=== PATIENT | female | born 1955 ===

== ENCOUNTER 2017-08-17 06:24 | Day surgery (SDC) | payer OTHER ==
[2017-08-17 06:55] VITALS: BMI 25.0
[2017-08-17] MEDS ORDERED: Lactated Ringer's 1,000 ML IV ONE (08:20)
[2017-08-17] MEDS ORDERED: Propofol 10 mg/ml Inj (20 ML) ONE (08:22)
--- NOTE | 2017-08-17 08:22 | CP.SDSHP ---
Same Day Surgery H & P - History Proposed Procedure: COLONSCOPY Pre-Op Diagnosis: SEE NOTES - Previous Medical/Surgical History Cardiac: Hypertension Endocrine/Metabolic: Diabetes, Other Misc: Other Pain: 4.Moderate Pain - Allergies Allergies: Allergies No Known Allergies Allergy (Verified 06/23/16 14:54) - Physical Exam General Appearance: N Vital Signs: Vital Signs 08/17/17 07:02 Temperature 97.8 F Pulse Rate 70 Respiratory 16 Rate Blood Pressure 125/59 L O2 Sat by Pulse 99 Oximetry Mental Status: Alert & Oriented x3 Neuro: WNL Heart: Other Lungs: WNL GI: Other - {Optional Preform as Required} Breast: WNL Abdomen: Other Rectal: Other Integument: WNL : WNL Ortho: Other ENT: WNL - Impression Pt. Evaluated Today:Candidate for Anesthesia & Procedure: Yes - Date & Time Time: 08:22 Short Stay Discharge - Short Stay Discharge Admitting Diagnosis/Reason for Visit: RECTAL BLEEDING Disposition: HOME/ ROUTINE
[2017-08-17] MEDS ORDERED: Belladonna-Phenobarbital PO ONE (09:00)
[2017-08-17 09:05] VITALS: TEMP 97
[2017-08-17 09:54] VITALS: BP 108/58; PULSE 54; RESP 17; O2SAT 98
== END 2017-08-17 09:40 | disposition home or self-care (01) ==
LOC: C.ENDO 06:24
PROVIDERS: ATTEND Specialist
DX: K63.89 Other specified diseases of intestine (principal); K52.9 Noninfective gastroenteritis and colitis, unspecified; K64.8 Other hemorrhoids; K57.30 Diverticulosis of large intestine without perforation or abscess without bleeding; K62.5 Hemorrhage of anus and rectum; R10.84 Generalized abdominal pain; R19.4 Change in bowel habit; E11.9 Type 2 diabetes mellitus without complications

== ENCOUNTER 2018-09-13 16:07 | Emergency (ER) | payer OTHER ==
[2018-09-13 16:13] VITALS: BMI 23.8
--- NOTE | 2018-09-13 16:56 | C.PDOC ---
History Of Present Illness 63 y/o female with history of HTN presents to ED with c/o left lower abdominal pain associated with constipation for 2 months and high blood pressure. Patient states she is compliant with HTN medication and still blood pressure is high when checked, states PMD is aware and changed medication 3 weeks ago with no improvement. Patient denies headache, nausea, vomiting, diarrhea, fever, chills, chest pain or any other complaints at this time. PMD: Dr. Paula <Armani Rivera - Last Filed: 09/13/18 18:58> History Per: Patient History/Exam Limitations: no limitations Onset/Duration Of Symptoms: Days Current Symptoms Are (Timing): Still Present <Armani Rivera - Last Filed: 09/13/18 18:58> <Samuel Baum - Last Filed: 09/13/18 20:00> Time Seen by Provider: 09/13/18 16:55 Chief Complaint (Nursing): High Blood Pressure Past Medical History Reviewed: Historical Data, Nursing Documentation, Vital Signs Vital Signs: Last Vital Signs Temp 98.9 F 09/13/18 16:13 Pulse 56 L 09/13/18 16:13 Resp 16 09/13/18 16:13 BP 154/84 H 09/13/18 16:13 Pulse Ox 99 09/13/18 16:13 - Medical History PMH: HTN, Hypercholesterolemia Surgical History: No Surg Hx Family History: States: No Known Family Hx - Social History Hx Tobacco Use: No Hx Alcohol Use: No Hx Substance Use: No - Immunization History Hx Tetanus Toxoid Vaccination: No Hx Influenza Vaccination: Yes (08/2018) Hx Pneumococcal Vaccination: No <Armani Rivera - Last Filed: 09/13/18 18:58> Vital Signs: Last Vital Signs Temp 98.9 F 09/13/18 16:13 Pulse 56 L 09/13/18 16:13 Resp 16 09/13/18 16:13 BP 154/84 H 09/13/18 16:13 Pulse Ox 99 09/13/18 19:00 <Samuel Baum - Last Filed: 09/13/18 20:00> Review Of Systems Constitutional: Negative for: Fever, Chills Gastrointestinal: Positive for: Abdominal Pain, Constipation. Negative for: Nausea, Vomiting, Diarrhea Musculoskeletal: Negative for: Back Pain Skin: Negative for: Rash Neurological: Negative for: Headache <NicoleArmani Last Filed: 09/13/18 18:58> Physical Exam - Physical Exam Appears: Non-toxic, No Acute Distress Skin: Warm, Dry, No Rash Head: Atraumatic, Normacephalic Eye(s): bilateral: Normal Inspection Oral Mucosa: Moist Neck: Normal ROM, Supple Chest: Symmetrical, No Deformity, No Tenderness, No Ecchymosis Cardiovascular: Rhythm Regular Respiratory: Normal Breath Sounds, No Rales, No Rhonchi, No Wheezing Gastrointestinal/Abdominal: Soft, Tenderness (LLQ), No Guarding, No Rebound Back: Normal Inspection, No CVA Tenderness Extremity: Normal ROM, No Pedal Edema, Capillary Refill (<2 seconds) Pulses: Left Dorsalis Pedis: Normal, Right Dorsalis Pedis: Normal Neurological/Psych: Oriented x3, Normal Speech, Normal Cognition, Normal Cranial Nerves, No Cerebellar Signs, Normal Motor, Normal Sensation Other Neurological Findings: No Facial Palsy Extremity: Right: No Drift, Left: No Drift, Upper: No Drift, Lower: No Drift <NicoleArmani Filed: 09/13/18 18:58> ED Course And Treatment - Laboratory Results Result Diagrams: 09/13/18 18:17 09/13/18 18:17 O2 Sat by Pulse Oximetry: 99 (RA) Pulse Ox Interpretation: Normal <NicoleArmani Guzman Filed: 09/13/18 18:58> - Laboratory Results Result Diagrams: 09/13/18 18:17 09/13/18 18:17 <Samuel Baum E - Last Filed: 09/13/18 20:00> Medical Decision Making Medical Decision Makin yr old female w/ hx of HTN p/w LLQ abdominal pain x1 mo and HTN to 1810 this AM without other symptoms. 2mo of abd pain, without recent abx diarrhea or constipation. No headache. No trauma or fall. No vaginal d/c or urinary c omplaints. Non HTN here in ED. Plan: CT abd/pelvis, UA, Blood work ordered. [address] abd pelvis signed out to Dr. Baum Pending CT ABD pelvis <Armani Rivera Last Filed: 09/13/18 18:58> Medical Decision Making: CT abd large stool chronic constipation <Samuel Baum - Last Filed: 09/13/18 20:00> Disposition <Armani Rivera - Last Filed: 09/13/18 18:58> Doctor Will See Patient In The: Office Counseled Patient/Family Regarding: Studies Performed, Diagnosis - Disposition Disposition Time: 19:59 <Samuel Baum - Last Filed: 09/13/18 20:00> - Disposition Disposition: HOME/ ROUTINE Condition: GOOD Forms: [facility] ([place]) - Clinical Impression Clinical Impression: Generalized colicky abdominal pain - Scribe Statement The provider has reviewed the documentation as recorded by the Scribarnulfo Sanderson All medical record entries made by the Manishaibe were at my direction and personal ly dictated by me. I have reviewed the chart and agree that the record accurately reflects my personal performance of the history, physical exam, medical decision making, and the department course for this patient. I have also personally directed, reviewed, and agree with the discharge instructions and disposition. <Armani Rivera - Last Filed: 09/13/18 18:58>
[2018-09-13 18:20] LABS: BASO % 0.4 % (0.0-2.0); EOS # 0.1 K/uL (0.0-0.7); EOS % 2.3 % (0.0-4.0); HEMOGLOBIN 11.8 g/dL (11.0-16.0); LYMPH # 1.4 K/uL (1.0-4.3); LYMPH % 26.6 % (20.0-40.0); MEAN CELL VOLUME 91.5 fL (81.0-99.0); MEAN CORPUSCULAR HEMOGLOBIN 30.4 pg (27.0-31.0); MEAN CORPUSCULAR HGB CONC 33.3 g/dL (33.0-37.0); MEAN PLATELET VOLUME 8.6 fL (7.2-11.7); MONO # 0.6 K/uL (0.0-0.8); MONO % 12.2 % (0.0-10.0); NEUT # 3.1 K/uL (1.8-7.0); NEUT % 58.5 % (50.0-75.0); NRBC % 0.1 % (0.0-2.0); RBC 3.88 Mil/uL (3.80-5.20); RED CELL DISTRIBUTION WIDTH 14.7 % (11.5-14.5); WHITE BLOOD COUNT 5.2 K/uL (4.8-10.8)
[2018-09-13 18:32] LABS: ALB/GLOB RATIO 1.5 (1.0-2.1); ALBUMIN 4.3 g/dL (3.5-5.0); ALT/SGPT 30 U/L (9-52); AST/SGOT 25 U/L (14-36); BLOOD UREA NITROGEN 16 mg/dL (7-17); CALCIUM 9.5 mg/dl (8.6-10.4); GFR NON-AFRICAN AMERICAN > 60; LIPASE 194 U/L (23-300)
[2018-09-13 18:40] LABS: SQUAMOUS EPITHIAL 1 /hpf (0-5); URINE BACTERIA FEW (<OCC); URINE BILIRUBIN NEGATIVE (NEGATIVE); URINE BLOOD 1+ (NEGATIVE); URINE CLARITY Clear (Clear); URINE COLOR Straw (YELLOW); URINE GLUCOSE (UA) NORMAL (Normal); URINE LEUKOCYTE ESTERASE TRACE Leu/uL (Negative); URINE PROTEIN NEGATIVE (NEGATIVE); URINE UROBILINOGEN NORMAL mg/dL (0.2-1.0)
[2018-09-13] MEDS ORDERED: Iohexol 300 100 ML IJ ONE (18:55)
[2018-09-13 20:21] VITALS: BP 170/66; PULSE 55; RESP 20; TEMP 98; O2SAT 98
--- NOTE | 2018-09-14 07:45 | CT ---
Date of service: 09/13/2018 PROCEDURE: CT Abdomen and Pelvis with contrast HISTORY: llq abd pain COMPARISON: Comparison is made to the previous CT angiogram of the abdomen dated 12/14/2015 TECHNIQUE: Contrast dose: 100 mL of Omnipaque 300 intravenously. Axial and reformatted coronal and sagittal CT images of the abdomen and pelvis were obtained after IV contrast administration. Radiation dose: Total exam DLP = 362.87 mGy-cm. This CT exam was performed using one or more of the following dose reduction techniques: Automated exposure control, adjustment of the mA and/or kV according to patient size, and/or use of iterative reconstruction technique. 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 The portal vein is patent. GALLBLADDER AND BILE DUCTS: No evidence of acute cholecystitis or biliary obstruction. PANCREAS: Unremarkable. No gross lesion or ductal dilatation. SPLEEN: Unremarkable. ADRENALS: Unremarkable. No mass. KIDNEYS AND URETERS: Unremarkable. No hydronephrosis. No solid mass. VASCULATURE: Unremarkable. No aortic aneurysm. No aortic atherosclerotic calcification or mural plaque present. BOWEL: Mild constipation is noted. Scattered colonic diverticulosis are seen without evidence of diverticulitis.. No obstruction. No gross mural thickening. APPENDIX: Normal appendix. PERITONEUM: Unremarkable. No free fluid. No free air. LYMPH NODES: Unremarkable. No enlarged lymph nodes. BLADDER: Unremarkable. REPRODUCTIVE: Unremarkable. BONES: No acute fracture. OTHER FINDINGS: None. IMPRESSION: Colonic diverticulosis without evidence of diverticulitis. Mild constipation. No evidence of acute pathology in the abdomen and pelvis otherwise. Preliminary report contains concordant findings was submitted by [facility].
== END 2018-09-13 20:23 | disposition home or self-care (01) ==
LOC: C.ER 16:07
DX: R10.84 Generalized abdominal pain (principal); E78.00 Pure hypercholesterolemia, unspecified; I10 Essential (primary) hypertension
CPT/HCPCS: 74177; 80053; 81001; 83690; 85025; 99285; Q9967